=== PATIENT | female | born 1975 | race Caucasian/White ===

== ENCOUNTER → 2018-09-15 | Outpatient (CLI) | payer OTHER ==
[~2018-09-15] MED LIST: ASPI-692 PO; ONDA4TAB97 PO; PRED20TA6 PO; relpax; restoril; singular; zyrtec
== END ==
LOC: RAD 12:04
PROVIDERS: ATTEND Chiropractor
DX: Z02.9 Encounter for administrative examinations, unspecified (principal)

== ENCOUNTER 2019-03-07 11:29 | Emergency (ER) | payer OTHER ==
[2019-03-07 11:32] VITALS: BP 140/90
[2019-03-07] MEDS ORDERED: LORazepam 2 MG/ML VIAL IVP ONE (11:40)
[2019-03-07] MEDS ORDERED: HCG PO (11:41)
--- NOTE | 2019-03-07 11:53 | ER Report ---
History and Physical Time Seen By MD: 11:20 Hx. of Stated Complaint: STATES SHE WOKE UP FEELING NAUSEOUS, SHAKY AND DIZZY. sTATES HER "HEAD JUST DOES NOT FEEL RIGHT". STEATS IT FEELS LIKE ANAPHYLACTIC SHOCK WITHOUT THE RESPIRTORY PROBLEMS. STATES HER HEART IS RACING AND HISTORY OF ANXIETY HPI/ROS CHIEF COMPLAINT: Jitter HISTORY OF PRESENT ILLNESS: Patient is a 43 female comes emergency Department with multiple medical problems and allergies she is allergic to gluten and latex and other medications that she's been very jittery her hands up in tremorous she feels like her heart is coming up out of her chest she had a lot of stressors recently with both family and professional her she doesn't believe that this is etiology of her complaints she says that she thinks it feels more like some type of allergic reaction but it's completely atypical for normal allergic reactions and he has had no exposures. Patient denies any chest pain at time of presentation nausea vomiting diarrhea fever chills at this time but has felt nauseous the past without actual actual emesis. No abdominal pain or discomfort no additional complaints noted REVIEW OF SYSTEMS: Respiratory: No cough, no dyspnea. Cardiovascular: No chest pain, no palpitations. Gastrointestinal: No vomiting, no abdominal pain. Musculoskeletal: No back pain. Remainder of the 14 system rev: Yes Allergies: Coded Allergies: carisoprodol (Verified Allergy, Severe, SOB, 03/07/19) codeine (Verified Allergy, Severe, SOB, 03/07/19) sumatriptan (Verified Allergy, Severe, ANAPHYLAXIS, 03/07/19) erythromycin base (Verified Allergy, Intermediate, VOMITING, 03/07/19) latex (Verified Allergy, Intermediate, ANAPHYLAXIS, 03/07/19) gluten (Verified Allergy, Unknown, CELIAC DISEASE, 03/07/19) Home Meds Reported Medications [Hcg] No Conflict Check, PO DAILY 03/07/19 Discontinued Reported Medications [relpax] No Conflict Check 02/26/16 Aspirin/Acetaminophen/Caffeine (EXCEDRIN MIGRAINE CAPLET) 1 Each Tablet, 1 EACH PO 02/26/16 [restoril] No Conflict Check 02/26/16 [zyrtec] No Conflict Check 02/26/16 [singular] No Conflict Check 02/26/16 Discontinued Scripts Ondansetron Hcl (ZOFRAN) 4 Mg Tablet, 4 MG PO Q6H PRN for NAUSEA/VOMITING, #10 Prov:AYANNA MOORE DO 02/26/16 Reviewed Nurses Notes: Yes Old Medical Records Reviewed: Yes Hx Smoking: No Smoking Status: Never Smoker Hx Substance Use Disorder: No Hx Alcohol Use: No Constitutional Vital Sign - Last 24 Hours 03/07/19 11:32 Temp 97.0 Pulse 84 Resp 18 B/P (MAP) 140/90 Pulse Ox 97 O2 Delivery Room Air Physical Exam General Appearance: The patient is alert, has no immediate need for airway protection and no current signs of toxicity. [ ] Eyes: Pupils equal and round no injection. Respiratory: Chest is non tender, lungs are clear to auscultation. Cardiac: regular rate and rhythm [ ] Gastrointestinal: Abdomen is soft and non tender, no masses, bowel sounds normal. Musculoskeletal: Neck: Neck is supple and non tender. Extremities have full range of motion and are non tender. Skin: No rashes or lesions. PM HEAD COOK exam patient holds her hands out and shows tremors however when she is talking and distracted the tremors subsequently completely resolved neurologically intact otherwise unremarkable DIFFERENTIAL DIAGNOSIS: After history and physical exam differential diagnosis was considered for anxiety hyperthyroid stress reaction cardiac issue drug effect allergic reaction Medical Decision Making Data Points Result Diagram: 03/07/19 1142 03/07/19 1142 Laboratory Hematology Test 03/07/19 11:42 Red Blood Count 5.24 M/uL (4.17-5.56) Mean Corpuscular Volume 84.8 fL (80.0-96.0) Mean Corpuscular Hemoglobin 28.0 pg (26.0-33.0) Mean Corpuscular Hemoglobin Concent 33.0 g/dL (32.0-36.0) Red Cell Distribution Width 13.5 % (11.5-14.5) Mean Platelet Volume 6.5 fL (7.2-11.1) Neutrophils (%) (Auto) 69.1 % (39.4-72.5) Lymphocytes (%) (Auto) 22.7 % (17.6-49.6) Monocytes (%) (Auto) 5.8 % (4.1-12.4) Eosinophils (%) (Auto) 1.9 % (0.4-6.7) Basophils (%) (Auto) 0.5 % (0.3-1.4) Nucleated RBC Relative Count (auto) 0.0 /100WBC Neutrophils # (Auto) 4.9 K/uL (2.0-7.4) Lymphocytes # (Auto) 1.6 K/uL (1.3-3.6) Monocytes # (Auto) 0.4 K/uL (0.3-1.0) Eosinophils # (Auto) 0.1 K/uL (0.0-0.5) Basophils # (Auto) 0.0 K/uL (0.0-0.1) Nucleated RBC Absolute Count (auto) 0.00 K/uL D-Dimer Quantitative (PE/DVT) 0.34 ug/ml (0-0.50) Sodium Level 137 mmol/L (137-145) Potassium Level 4.0 mmol/L (3.5-5.0) Chloride Level 104 mmol/L (98-107) Carbon Dioxide Level 22 mmol/L (22-31) Blood Urea Nitrogen 15 mg/dl (7-18) Creatinine 0.80 mg/dl (0.52-1.04) Glomerular Filtration Rate Calc > 60.0 Random Glucose 69 mg/dl (75-110) Calcium Level 8.8 mg/dl (8.4-10.2) Total Bilirubin 0.4 mg/dl (0.2-1.3) Aspartate Amino Transf (AST/SGOT) 25 U/L (0-35) Alanine Aminotransferase (ALT/SGPT) 21 U/L (0-56) Alkaline Phosphatase 92 U/L (0-126) Troponin I < 0.012 ng/ml Total Protein 7.7 g/dl (6.3-8.2) Albumin 4.3 g/dl (3.5-5.0) Chemistry Test 03/07/19 11:42 White Blood Count 7.2 k/uL (4.5-11.0) Red Blood Count 5.24 M/uL (4.17-5.56) Hemoglobin 14.7 g/dL (12.0-16.0) Hematocrit 44.4 % (34.0-47.0) Mean Corpuscular Volume 84.8 fL (80.0-96.0) Mean Corpuscular Hemoglobin 28.0 pg (26.0-33.0) Mean Corpuscular Hemoglobin Concent 33.0 g/dL (32.0-36.0) Red Cell Distribution Width 13.5 % (11.5-14.5) Platelet Count 230 K/uL (150-450) Mean Platelet Volume 6.5 fL (7.2-11.1) Neutrophils (%) (Auto) 69.1 % (39.4-72.5) Lymphocytes (%) (Auto) 22.7 % (17.6-49.6) Monocytes (%) (Auto) 5.8 % (4.1-12.4) Eosinophils (%) (Auto) 1.9 % (0.4-6.7) Basophils (%) (Auto) 0.5 % (0.3-1.4) Nucleated RBC Relative Count (auto) 0.0 /100WBC Neutrophils # (Auto) 4.9 K/uL (2.0-7.4) Lymphocytes # (Auto) 1.6 K/uL (1.3-3.6) Monocytes # (Auto) 0.4 K/uL (0.3-1.0) Eosinophils # (Auto) 0.1 K/uL (0.0-0.5) Basophils # (Auto) 0.0 K/uL (0.0-0.1) Nucleated RBC Absolute Count (auto) 0.00 K/uL D-Dimer Quantitative (PE/DVT) 0.34 ug/ml (0-0.50) Glomerular Filtration Rate Calc > 60.0 Calcium Level 8.8 mg/dl (8.4-10.2) Total Bilirubin 0.4 mg/dl (0.2-1.3) Aspartate Amino Transf (AST/SGOT) 25 U/L (0-35) Alanine Aminotransferase (ALT/SGPT) 21 U/L (0-56) Alkaline Phosphatase 92 U/L (0-126) Troponin I < 0.012 ng/ml Total Protein 7.7 g/dl (6.3-8.2) Albumin 4.3 g/dl (3.5-5.0) Coagulation Test 03/07/19 11:42 D-Dimer Quantitative (PE/DVT) 0.34 ug/ml ED Course/Re-evaluation ED Course ED course [age] female comes in with vague nonspecific complaints concerning she's having allergic reaction is unclear if that is true etiology is it's an atypical presentation was not treated as an a allergic reaction did offer some Ativan think there is some anxiety component as she refuses secondary to her role in the I did do a chest x-ray which was normal blood work was which was all normal awaiting TSH which is pending I believe this to be anxiety more than an allergic reaction we'll diagnose accordingly narrow follow up with primary Decision to Disposition Date: Mar 07, 2019 Decision to Disposition Time: 12:21 Depart Departure Latest Vital Signs Vital Signs Date Time Temp Pulse Resp B/P (MAP) Pulse Ox O2 Delivery O2 Flow Rate FiO2 03/07/19 11:32 97.0 84 18 140/90 97 Room Air Impression: Primary Impression: Anxiety Condition: Improved Disposition: HOME OR SELF-CARE Referrals: ZITA VILLEGAS DNP, CLINICAL ENGINEERING DIRECTOR-BC 5 Days Patient Instructions: Anxiety (DC) MARVIN YE MD Mar 07, 2019 11:53
[2019-03-07 11:54] LABS: PLATELET COUNT, AUTOMATED 230 K/uL (150-450)
--- NOTE | 2019-03-07 12:04 | EKG ---
FACILITY: [facility] PATIENT NAME: CHIVO GOMEZ : [id number] MR: [id number] V: [id number] EXAM DATE: ORDERING PHYSICIAN: MARVIN YE TECHNOLOGIST: SARA Camejo Reason : CP Blood Pressure : / mmHG Vent. Rate : 085 BPM Atrial Rate : 085 BPM P-R Int : 136 ms QRS Dur : 076 ms QT Int : 392 ms P-R-T Axes : 030 010 -01 degrees QTc Int : 466 ms Normal sinus rhythm Normal ECG When compared with ECG of 26-FEB-2016 21:43, Inverted T waves have replaced nonspecific T wave abnormality in Anterior leads Confirmed by DOREEN CAMPOS ([id number]) on 03/08/2019 6:37:41 AM Referred By: EPHRAIM Confirmed By:DOREEN CAMPOS
--- NOTE | 2019-03-07 12:41 | RADIOLOGY IMAGING REPORT ---
FACILITY: [facility] PATIENT NAME: Sally Mayes : 1975 MR: [id number] V: [id number] EXAM DATE: ORDERING PHYSICIAN: MARVIN YE TECHNOLOGIST: Location: [facility] - [place] Patient: Sally Mayes : 1975 Visit/Account:[id number] Date of Sevice: 03/07/2019 2 VIEWS CHEST INDICATION: Chest pain. COMPARISON: 10/05/2015. FINDINGS: Cardiomediastinal silhouette and pulmonary vessels within normal limits. There is no focal infiltrate or lobar consolidation. There is no pneumothorax or pleural effusion. No nodule. Upper abdomen is unremarkable. Surgical clips in the right upper quadrant. No acute bony abnormality. IMPRESSION: 1. No acute cardiopulmonary process. Report Dictated By: Eriberto Copeland at 03/07/2019 12:35 PM Report E-Signed By: Eriberto Copeland at 03/07/2019 12:37 PM WSN:[id number]
== END 2019-03-07 12:27 | disposition home or self-care (01) ==
LOC: ER 11:55
DX: R41.9 Unspecified symptoms and signs involving cognitive functions and awareness (principal)
CPT/HCPCS: 71046; 82040; 82247; 82310; 82374; 82435; 82565; 82947; 84075; 84132; 84155; 84295; 84443; 84450; 84460; 84484; 84520; 85025; 85379; 93005; 99284